=== PATIENT | female | born 1955 | race Caucasian/White ===

== ENCOUNTER 2019-11-10 09:06 | Outpatient (CLI) | payer OTHER, SELFPAY ==
--- NOTE | ~2019-11-10 | US_ITS ---
EXAMINATION: US thyroid DATE: 11/10/2019 09:48 INDICATION: Nontoxic goiter TECHNIQUE: Multiple ultrasound images of the thyroid were obtained. COMPARISON: None. FINDINGS: The right thyroid lobe measures 7.3 x 3.5 x 3.7 cm. The left thyroid lobe measures 6.7 x 2.9 x 2.7 c m. 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 8 mm wider than tall nodule with smooth shadowing peripheral rim calcification (TI-RA DS 4, moderately suspicious , FNA if >=1.5 cm, annual followup is >1 cm) in the right thyroid lobe. IMPRESSION: 1. 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 2. 8 mm rim calcified TI RADS 4 nodules in the right thyroid lobe for which neither biopsy nor follow -up is recommended. Reviewed, dictated and finalized at location A. IMPRESSION: 1. 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 2. 8 mm rim calcified TI RADS 4 nodules in the right thyroid lobe for which nei ther biopsy nor follow-up is recommended.
== END 2019-11-10 09:07 | disposition home or self-care (01) ==
PROVIDERS: PCP Internal Medicine Gastroenterology; Visit Provider Otolaryngology
DX: E04.9 Nontoxic goiter, unspecified (principal)
CPT/HCPCS: 76536

== ENCOUNTER → 2021-03-14 11:14 | Outpatient (CLI) | payer MEDICARE, MEDICAID, SELFPAY ==
--- NOTE | ~2021-03-14 | US_ITS ---
EXAMINATION: US thyroid EXAM DATE: 03/14/2021 11:32 INDICATION: E06.3 - Autoimmune thyroiditis. TECHNIQUE: Multiple grayscale and Doppler images of the thyroid were obtained (by a technologist who performed the scan) and subsequently reviewed. Individual nodules and recommendations may be reporte d in accordance with TI-RADS system as designated by the 2017 ACR White Paper TI-RADS committee. The re is no prior study for comparison. FINDINGS: There is diffusely heterogeneous thyroid echogenicity with severe thyromegaly of both thyroid lobes, the right measuring 7.5 x 3.0 x 2.7 cm and the left measuring 6.0 x 2.5 x 2.6 cm. A focal region in t he anterior aspect of the right thyroid lobe was measured, however this has identical echogenicity to other portions of the right thyroid lobe and is suspected most likely not a focal nodule. This was n ot specifically single down on prior study. There is no interval change in the hyperechoic right thyroid lobe nodule measuring up to 7 mm with so me calcification which was previously identified, consistent with benign histology. IMPRESSION: 1. Goiter. 2. Stable small right thyroid lobe nodule, benign. 3. Return to clinical follow-up. Reviewed, dictated and finalized at location A. MAKER
== END ==
PROVIDERS: PCP Family Medicine; Visit Provider Nurse Practitioner Family
DX: E06.3 Autoimmune thyroiditis (principal); E03.9 Hypothyroidism, unspecified; E04.9 Nontoxic goiter, unspecified; E04.1 Nontoxic single thyroid nodule
CPT/HCPCS: 76536

== ENCOUNTER → 2021-06-22 11:58 | Outpatient (CLI) | payer MEDICARE, MEDICAID, SELFPAY ==
--- NOTE | ~2021-06-22 | MM_ITS ---
EXAMINATION: MM screening megan BI w edward HISTORY: Screening TECHNIQUE: Craniocaudal and mediolateral oblique 3-D tomosynthesis images were obtained and synthetic 2-D images were generated. CAD analysis was submitted and interpreted. COMPARISON: No prior mammogram is available for comparison at this institution. BREAST PARENCHYMAL COMPOSITION: The breasts are almost entirely fatty. FINDINGS: There is no evidence of suspicious mass, calcification, or architectural distortion to sugg est malignancy in either breast. There has been no suspicious interval change. IMPRESSION: 1. No mammographic evidence of malignancy. 2. Recommend routine screening mammography in one year. BI-RADS Category 1: Negative Reviewed, dictated and finalized at location D. E LEAD FILTERER
== END ==
PROVIDERS: Visit Provider Nurse Practitioner Family
DX: Z12.31 Encounter for screening mammogram for malignant neoplasm of breast (principal)
CPT/HCPCS: 77063; 77067

== ENCOUNTER 2022-06-07 11:28 | Outpatient (CLI) | payer MEDICARE, MEDICAID, SELFPAY ==
--- NOTE | ~2022-06-07 | CT_ITS ---
EXAMINATION: CT lung screening DATE: 06/07/2022 12:07 INDICATION: Personal history of nicotine dependence, prior smoker with 40 pack year history TECHNIQUE: Computed tomography (CT) of the chest was performed without intravenous contrast. The dose -length product (DLP) was 109.34 mGy-cm. 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 COMPARISON: None FINDINGS: There is mild emphysema. No suspicious pulmonary nodules are identified. The lungs are free of acute opacities. No pleural effusion or pneumothorax. No pathologically enlarged thoracic lymph n odes are identified. The heart size is normal. There is a small sliding hiatal hernia. Calcified radha nary artery atherosclerosis is noted. Subendocardial fat deposition in the left ventricular apex is c onsistent with prior myocardial infarction. There is a 12 mm cyst of the left hepatic lobe. There are bridging osteophytes at multiple levels in the spine, consistent with diffuse idiopathic skeletal hy perostosis (DISH). IMPRESSION: 1. Lung-RADS category 1: Negative. Continue annual screening with noncontrast low-dose chest CT in 12 months. Reviewed, dictated and finalized at location F. DYNAMICS TEACHER IMPRESSION: 1. Lung-RADS category 1: Negative. Continue annual screening with noncontrast l ow-dose chest CT in 12 months.
== END 2022-06-07 11:29 | disposition home or self-care (01) ==
PROVIDERS: PCP Physician Assistant Medical; Visit Provider Nurse Practitioner Family
DX: Z87.891 Personal history of nicotine dependence (principal)
CPT/HCPCS: 71271

== ENCOUNTER 2022-07-21 01:18 | Day surgery (SDC) | payer MEDICARE, MEDICAID, SELFPAY ==
[2022-07-21 06:26] VITALS: BP 129/93; PULSE 103; RESP 16; TEMP 36.3; O2SAT 96
[2022-07-21] MEDS: LACTATED RINGERS 1,000 ML 150 ML IV CONT (06:28)
--- NOTE | 2022-07-21 06:48 | WPDANESEPPF ---
Anes - Initial Pre Proc Eval Procedure: Operation Date: 07/21/22 07:30 Proposed Procedures p Screening Colonoscopy - Germán Muro MD Date/Time: 07/21/22 06:48 Surgeon: Germán Muro MD Pre Op Diagnosis: neoplasm screening Patient Data Age: 67 Gender: F Height: 1.65 m Weight: 81.5 kg Last Vital Signs Temp 36.3 C L 07/21/22 06:26 Pulse 103 H 07/21/22 06:26 Resp 16 07/21/22 06:26 BP 129/93 H 07/21/22 06:26 Pulse Ox 96 07/21/22 06:26 O2 Del Method Room Air 07/21/22 06:26 Allergies Allergy/AdvReac Type Severity Reaction Status Date / Time Stnapyf-SJE-HfO Reductase Allergy Severe muscle Verified 07/21/22 06:25 Inhibitor cramp [Vzkzfny-Wfg-Gzl Reductase Inhibitor] gabapentin Allergy Confusion Verified 07/21/22 06:25 ezetimibe [From Zetia] AdvReac Intermediate leg cramps Verified 07/21/22 06:25 Home Medications Medication Instructions Recorded Confirmed Type fluticasone propionate 50 1 spray intranasal BID 11/03/19 07/21/22 History mcg/actuation nasal spray,suspension (Allergy Relief (fluticasone)) baclofen 10 mg tablet 10 mg PO TID #90 tabs 06/13/22 07/21/22 Rx bupropion HCl 300 mg 24 hr tablet, 300 mg PO QAM #90 tabs 06/14/22 07/21/22 Rx extended release (Wellbutrin XL) citalopram 20 mg tablet 20 mg PO DAILY 07/13/22 07/21/22 History hydrochlorothiazide 12.5 mg capsule 12.5 mg PO DAILY 07/13/22 07/21/22 History levothyroxine 75 mcg tablet 75 mcg PO DAILY 07/13/22 07/21/22 History lisinopril 10 mg tablet 10 mg PO DAILY 07/13/22 07/21/22 History omeprazole 20 mg capsule,delayed 20 mg PO DAILY 07/13/22 07/21/22 History release loratadine 10 mg tablet 10 mg PO DAILY #90 tabs 07/19/22 07/21/22 Rx Patient hx anesthesia problems: none Family hx anesthesia problems: none Results Review: All pre-operative results and documents have been reviewed as part of the pre-operative evaluation. 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 Spinal stenosis, cervical region Weakness of left arm Surgical History Surgical History History of hysterectomy Family History Family History Father Lung cancer Mother Bladder cancer Breast cancer Cerebrovascular accident Sibling Parkinson disease COVID-19 Other Carcinoma of colon Depression Diabetes mellitus Heart disease Hypertension Psoriasis Social History Social History Years smoked: 30 Smoking status: Former smoker Tobacco type: cigarettes Second hand tobacco smoke exposure: Yes Alcohol intake: never Substance use: never Substance use type: does not use Lack of Transportation: No Lack of Food: Never True Current Housing: I Have Housing Concerned About Future Housing: No Difficulty Paying Gas/Electric Bills: No Difficulty Paying for Meds: No Currently Unemployed: No Education: High School Diploma/GED Difficulty w/ Childcare or Family Care: No Living arrangements: with family Occupation/Education: retired 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
--- NOTE | 2022-07-21 07:32 | PM.HPGS ---
History of Present Illness History of Present Illness Consent: Risks, benefits, and alternatives have been discussed and questions answered. Patient agrees to proceed with procedure. Chief complaint: neoplasm screening Narrative: Socorro Abdi is a 67 year old female here for first screening colonoscopy Review of Systems Constitutional: Constitutional: Denies headache(s) and Denies weakness Eyes: Eyes: Denies blurry vision ENT: Reports Normal hearing present, Denies headache(s) and Denies neck pain Cardiovascular: Cardiovascular: Denies chest pain and Denies dyspnea Respiratory: Respiratory: Denies dyspnea Gastrointestinal: Gastrointestinal: Reports no additional gastrointestinal complaints Genitourinary: Genitourinary: Denies dysuria Musculoskeletal: Musculoskeletal: Denies neck pain Integumentary/Breasts: Skin/Breast: Denies dry skin Neurologic: Reports Normal hearing present, Denies headache(s) and Denies weakness Psychiatric: Psychiatric: Denies anxiety Endocrine: Endocrine: Denies change in body appearance Hematologic/Lymphatic: Hematologic/Lymphatic: Denies easy bleeding Allergic/Immunologic: Allergic/Immunologic: Denies urticaria PMFSH Past Medical History Medical History Allergic rhinitis BMI 30.0-30.9,adult BMI 31.0-31.9,adult Carpal tunnel syndrome Depressive disorder Essential hypertension Gastroesophageal reflux disease 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 Spinal stenosis, cervical region Weakness of left arm Surgical History Surgical History History of hysterectomy Family History Family History Father Lung cancer Mother Bladder cancer Breast cancer Cerebrovascular accident Sibling Parkinson disease COVID-19 Other Carcinoma of colon Depression Diabetes mellitus Heart disease Hypertension Psoriasis Social History Social History Years smoked: 30 Smoking status: Former smoker Tobacco type: cigarettes Second hand tobacco smoke exposure: Yes Alcohol intake: never Substance use: never Substance use type: does not use Lack of Transportation: No Lack of Food: Never True Current Housing: I Have Housing Concerned About Future Housing: No Difficulty Paying Gas/Electric Bills: No Difficulty Paying for Meds: No Currently Unemployed: No Education: High School Diploma/GED Difficulty w/ Childcare or Family Care: No Living arrangements: with family Occupation/Education: retired 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 Gender identity (if verbalized by the patient): Female Spiritual care concerns: No Meds Home Medications and Allergies Home Medications Medication Instructions Recorded Confirmed Type fluticasone propionate 50 1 spray intranasal BID 11/03/19 07/21/22 History mcg/actuation nasal spray,suspension (Allergy Relief (fluticasone)) baclofen 10 mg tablet 10 mg PO TID #90 tabs 06/13/22 07/21/22 Rx bupropion HCl 300 mg 24 hr tablet, 300 mg PO QAM #90 tabs 06/14/22 07/21/22 Rx extended release (Wellbutrin XL) citalopram 20 mg tablet 20 mg PO DAILY 07/13/22 07/21/22 History hydrochlorothiazide 12.5 mg capsule 12.5 mg PO DAILY 07/13/22 07/21/22 History levothyroxine 75 mcg tablet 75 mcg PO DAILY 07/13/22 07/21/22 History lisinopril 10 mg tablet 10 mg PO DAILY 07/13/22 07/21/22 History omeprazole 20 mg capsule,delayed 20 mg PO DAILY 07/13/22 07/21/22 History release loratadine 10 mg tablet 10 mg PO DAILY #90 tabs 07/19/22 07/21/22 Rx Allergies Allergy/AdvReac Type Severity Reaction Status Date / Time Oazefda-AHK-PnK Reductase Allergy Severe muscle Verified 07/21/22 06:25 Inhibitor cramp [Osaehfs-Tpf-Wba Reductase In
[2022-07-21 07:56] VITALS: BP 95/60; PULSE 84; RESP 14; O2SAT 100
[2022-07-21 08:06] VITALS: BP 102/59; PULSE 86; RESP 20; O2SAT 100
[2022-07-21 08:16] VITALS: BP 109/67; PULSE 79; RESP 25; O2SAT 96
== END 2022-07-21 08:24 | disposition home or self-care (01) ==
PROVIDERS: PCP Physician Assistant Medical; Visit Provider Internal Medicine Gastroenterology
PROC: 0DJD8ZZ Inspection of Lower Intestinal Tract, Via Natural or Artificial Opening Endoscopic (ICD-10-PCS; CPT 45378; principal; 2022-07-21 07:30)
DX: Z12.11 Encounter for screening for malignant neoplasm of colon (principal); K57.30 Diverticulosis of large intestine without perforation or abscess without bleeding; K63.5 Polyp of colon; K64.4 Residual hemorrhoidal skin tags; I10 Essential (primary) hypertension; K21.9 Gastro-esophageal reflux disease without esophagitis; E06.3 Autoimmune thyroiditis; F32.A Depression, unspecified; Z87.891 Personal history of nicotine dependence; E66.9 Obesity, unspecified; Z68.29 Body mass index [BMI] 29.0-29.9, adult
CPT/HCPCS: 45385; 88305; J2704; J7120

== ENCOUNTER 2022-07-26 09:24 | Outpatient (CLI) | payer MEDICARE, MEDICAID, SELFPAY ==
--- NOTE | ~2022-07-26 | CT_ITS ---
CT scan of the Neck Technique: 2.5 mm axial scans were obtained through the neck after intravenous administration of 75 c c Omnipaque 350. Coronal and sagittal reconstructions of the neck were obtained. Dose reduction techn ique was used on this scan by utilizing automated exposure control and iterative reconstruction techn ique. The dose-length product (DLP) was 485.02 mGy-cm. Clinical History: Level 3 right neck mass Findings: There is no evidence of any significant cervical lymphadenopathy. Several small, nonenlarged jugulo- digastric and posterior cervical lymph nodes are noted bilaterally. Parapharyngeal spaces appear norm al bilaterally. The parotid and submandibular glands appear normal. The pharyngeal mucosal spaces appear normal. No soft tissue masses are seen in the neck. Thyroid gland is enlarged, particularly the right thyroid lobe, which extends superiorly to the level of the hyaloid bone. There are several hypodense nodules in the upper right thyroid lobe.. Images of the lung apices reveal no abnormalities. Grade 1 anterolisthesis of C4 over C5 noted. There is advanced degenerative disc narrowing at C5-C6 a nd C6-C7, as well as at C3-C4. Impression: Enlarged thyroid gland, particularly the right thyroid lobe, which extends superiorly to the level of the hyoid bone, with several hypodense nodules. This likely accounts for the palpable right neck mas s. No other abnormal mass lesion seen. Degenerative spondylosis of the cervical spine, as noted above. Reviewed, dictated and finalized at [facility]. Impression: Enlarged thyroid gland, particularly the right thyroid lobe, which extends supe riorly to the level of the hyoid bone, with several hypodense nodules. This lik edenilson accounts for the palpable right neck mass. No other abnormal mass lesion seen. Degenerative spondylosis of the cervical spine, as noted above.
[2022-07-26 09:50] LABS: Estimated Glomerular Filt Rate > 60
== END 2022-07-26 09:25 | disposition home or self-care (01) ==
PROVIDERS: PCP Physician Assistant Medical; Visit Provider Otolaryngology
DX: R22.1 Localized swelling, mass and lump, neck (principal); M47.892 Other spondylosis, cervical region
CPT/HCPCS: 70491; Q9967

== ENCOUNTER 2023-12-14 13:46 | Outpatient (CLI) | payer MEDICARE, MEDICAID, SELFPAY ==
--- NOTE | ~2023-12-14 | MM_ITS ---
EXAMINATION: MM screening megan BI w edward HISTORY: Screening TECHNIQUE: Craniocaudal and mediolateral oblique 3-D tomosynthesis images were obtained and synthetic 2-D images were generated. CAD analysis was submitted and interpreted. COMPARISON: 06/22/2021 BREAST PARENCHYMAL COMPOSITION: Not Dense: The breasts are almost entirely fatty. FINDINGS: There is no evidence of suspicious mass, calcification, or architectural distortion to sugg est malignancy in either breast. There has been no suspicious interval change. IMPRESSION: 1. No mammographic evidence of malignancy. 2. Recommend routine screening mammography in one year. BI-RADS Category 1: Negative Reviewed, dictated and finalized at location B.
== END 2023-12-14 13:47 ==
LOC: MICIMG 13:47
PROVIDERS: PCP Nurse Practitioner Family; Visit Provider Nurse Practitioner Family
DX: Z12.31 Encounter for screening mammogram for malignant neoplasm of breast (principal)
CPT/HCPCS: 77063; 77067